=== PATIENT | female | born 1975 | race Caucasian/White ===

== ENCOUNTER → 2023-11-05 10:41 | Outpatient (REF) | payer OTHER, SELFPAY | LOC: HWWDC 10:41 | PROVIDERS: ATTENDING PHYSICIAN Physician Assistant Medical | DX: Z12.31 Encounter for screening mammogram for malignant neoplasm of breast (principal) | CPT/HCPCS: 77063; 77067 ==

== ENCOUNTER → 2024-12-15 11:41 | Outpatient (REF) | payer OTHER, SELFPAY | LOC: HWWDC 11:41 | PROVIDERS: ATTENDING PHYSICIAN Physician Assistant Medical | DX: Z12.31 Encounter for screening mammogram for malignant neoplasm of breast (principal) | CPT/HCPCS: 77063; 77067 ==